=== PATIENT | male | born 2000 | race Two or more races ===

== ENCOUNTER 2022-12-20 18:36 | Emergency (ER) | payer OTHER ==
[~2022-12-20] VITALS: Ht 170.2 cm; Wt 80.9 kg
[2022-12-20] MEDS ORDERED: ALBU18HF12 IH (18:46)
[2022-12-20 19:16] VITALS: TEMP 98.3
[2022-12-20] MEDS ORDERED: TraMADol HCL 50 MG TABLET PO ONE (19:45)
[2022-12-20] MEDS ORDERED: KETOROLAC TROMETHAMINE 30 MG/ML VIAL IM ONE (19:45)
[2022-12-20] MEDS ORDERED: LIDOCAINE 5% TRANSDERMAL PATCH TD ONE (19:45)
[2022-12-20 21:00] VITALS: BP 132/75; PULSE 86; RESP 16
== END 2022-12-20 21:32 | disposition short-term general hospital (02) ==
LOC: EMS 18:39
DX: M54.50 Low back pain, unspecified (principal); M54.2 Cervicalgia
CPT/HCPCS: 99285; 72100; 96372; J1885